=== PATIENT | male | born 1965 | race Caucasian/White ===

== ENCOUNTER 2025-08-10 12:04 | Emergency (ER) | payer OTHER, SELFPAY ==
[2025-08-10 12:13] VITALS: PULSE 49; RESP 12; O2SAT 100
[2025-08-10 12:14] VITALS: BP 120/68; PULSE 50; PULSE 52; RESP 10; TEMP 36.4; O2SAT 100; BMI 21.4
--- NOTE | 2025-08-10 12:21 | DI.RAD.S_ITS ---
PROCEDURE: XR CHEST 1V INDICATIONS: Chest Pain TECHNIQUE: One view of the chest was acquired. COMPARISON: None. FINDINGS: Surgical changes and devices: Postsurgical changes in lower cervical spine. Lungs and pleura: Ill-defined airspace opacity in right suprahilar region is seen. No pleural effusions or pneumothorax. Mediastinum: Mediastinal contours appear normal. Heart size is normal. Bones and chest wall: No suspicious bony lesions. Overlying soft tissues appear unremarkable. IMPRESSION: Finding may represent small right upper lobe infiltrate. Clinical correlation and follow-up is recommended. No pleural effusion or pneumothorax. Dictated by: Santiago Villegas M.D. on 08/10/2025 at 12:57 Approved by: Santiago Villegas M.D. on 08/10/2025 at 12:57
--- NOTE | 2025-08-10 12:22 | EKG_ITS ---
[address] [address] Test Date: 2025-08-10 Pat Name: Shabbir Fall Department: Room: Gender: Male Patient Services Rep: SHERIE : 1965 Requested By: Order Number: [id number] Reading MD: Calixto Ann Measurements Intervals [place] Rate: 52 P: 48 NM: 112 QRS: 71 QRSD: 108 T: 12 QT: 430 QTc: 399 Interpretive Statements Sinus bradycardia Electronically Signed On 08-13-2025 8:04:27 PDT by Calixto Ann
[2025-08-10 12:26] LABS: Add Manual Diff / Slide Review NO; Hematocrit 37.7 % (41-53); Hemoglobin 13.1 g/dL (13.5-17.5); Lymphocytes Absolute Auto 1800 /uL (1100-4500); Mean Corpuscular HGB Conc 34.7 % (30-36); Mean Corpuscular Hemoglobin 34.0 PG (26-34); Mean Corpuscular Volume 98.0 fL (80-100); Platelet Count 331 X10^3/uL (150-400)
[2025-08-10 12:28] LABS: INR 1.0 (0.9-1.3); Prothrombin Time 11.6 SECONDS (9.4-12.5)
[2025-08-10 12:30] VITALS: PULSE 51; RESP 10; O2SAT 100
[2025-08-10 12:31] VITALS: BP 119/73; PULSE 51; RESP 12; O2SAT 100
[2025-08-10 12:31] LABS: PTT Partial Thromboplastin Tim 25 SECONDS (25.1-36.5)
[2025-08-10 12:37] LABS: Alanine Aminotransferase 21 IU/L (<50); Albumin 4.4 g/dL (3.5-5.0); Albumin Globulin Ratio 1.6 (1.0-2.8); Alkaline Phosphatase 73 U/L (38-126); Blood Urea Nitrogen 26 mg/dL (9-20); Calcium 9.4 mg/dL (8.4-10.2); Carbon Dioxide 27 mmol/L (22-32); Chloride 102 mmol/L (98-107); Creatine Kinase 116 U/L (55-170); Estimated Glomerular Filt Rate > 60 mL/min (>60); Globulin 2.7 g/dL (1.7-4.1); Glucose 139 mg/dL (70-99); Lipase 625 U/L (23-300); Magnesium 1.9 mg/dL (1.6-2.3); Sodium 136 mmol/L (137-145); Total Protein 7.1 g/dL (6.3-8.2)
[2025-08-10 12:45] LABS: Ethanol (ETOH) < 10 mg/dL (<10)
[2025-08-10 12:47] LABS: HEMOLYSIS 124 (0-50); Potassium 4.5 mmol/L (3.4-5.1)
[2025-08-10 12:49] LABS: NT-proBNP (BNP-Adult 18+) 53 pg/mL (<125); Troponin I 0.019 ng/mL (0.01-0.034)
[2025-08-10 13:00] VITALS: BP 130/73; PULSE 80; O2SAT 95
[2025-08-10 13:30] VITALS: BP 125/73; PULSE 59; RESP 16
--- NOTE | 2025-08-10 13:35 | ED_ITS ---
HPI - General Adult General Chief complaint: Syncope Stated complaint: Near syncope Time Seen by Provider: 08/10/25 12:29 Source: EMS Mode of arrival: EMS History of Present Illness HPI narrative: Patient is a 60-year-old male history of hypertension presenting today with near syncopal episode. He is [place] from [place] of town for with your festival. He reports he did not eat breakfast they were walking around and he suddenly got very flushed lightheaded and needed to sit down. He did not pass out he did not have any kind of chest pain. Denies any alcohol use. EMS reports he was hypotensive on the scene but blood pressure quickly improved with IV fluids. He denies any fever chills cough or other symptoms. Related Data Allergies Allergy/AdvReac Type Severity Reaction Status Date / Time No Known Drug Allergies Allergy Verified 08/10/25 12:14 Exam Initial Vital Signs Initial Vital Signs: Vital Signs Pulse Rate 49 L 08/10/25 12:13 Respiratory Rate 12 08/10/25 12:13 Pulse Oximetry 100 08/10/25 12:13 GENERAL: Alert well-appearing 60-year-old and in no acute distress. HEENT: Head atraumatic,EOMI, pupils reactive, face symmetric, moist mucous membranes CARDIOVASCULAR: Regular rate and rhythm without murmurs, rubs or gallops. RESPIRATORY: Breath sounds equal bilaterally, no wheezes rales or rhonchi. ABDOMEN: Soft, nontender. Normoactive bowel sounds all 4 quadrants. No guarding or rebound. EXTREMITIES: Normal range of motion, no clubbing or edema. Neurovascularly intact NEUROLOGICAL: Alert and oriented x4.Normal gait and speech. Cranial nerves II through XII grossly intact. Manager Utilization Review strength equal bilaterally no definite SKIN: Warm, dry, no laceration, no petechiae, no rashes or lesions. Scores NIH Stroke Scale Level of Conciousness: Alert, keenly responsive Ask month/age: Answers both questions correctly. Open/close eyes, close hand: Performs both tasks correctly Best gaze horizontal: Normal Visual queen: No visual loss Facial palsy: Normal symetrical movement Left arm drift: No drift for full 10 sec Right arm drift: No drift for full 10 sec Left leg drift: No drift for full 5 sec Right leg drift: No drift for full 5 sec Limb ataxia: Absent Sensory on face/arms/legs: Normal, no sensory loss Best language: No aphasia, normal Dysarthria: Normal Extinction or inattention: No abnormality Total NIH Stroke scale score: 0 Course Orders Ordered: ED Orders 08/10/25 12:10 Complete Blood Count AUTO DIFF Stat Comprehensive Metabolic Panel Stat Lipase Stat Magnesium Stat NT-proBNP (BNP-Adult 18+) Stat PTT Partial Thromboplastin Juan F Stat Prothrombin Time INR Stat Troponin & CK Cardiac Panel Stat 08/10/25 12:21 XR chest 1V Stat EKG-12 Lead Stat 08/10/25 12:29 ETOH [Ethanol (ETOH)] Stat Discontinued Medications Aspirin (Aspirin 81 Mg Chew Tab) 324 mg PO NOW ONE Stop: 08/10/25 12:22 Last Admin: 08/10/25 14:08 Dose: Not Given Documented By: WILY Vital Signs Vital signs: Vital Signs - 8 hr 08/10/25 12:13 08/10/25 12:14 08/10/25 12:14 Temperature 97.6 F Pulse Rate 49 L 52 L Respiratory Rate 12 10 L Blood Pressure 120/68 120/68 Pulse Oximetry 100 100 Oxygen Delivery Method Room Air 08/10/25 12:14 08/10/25 12:30 08/10/25 12:31 Temperature Pulse Rate 50 L 51 L 51 L Respiratory Rate 10 L 10 L 12 Blood Pressure Pulse Oximetry 100 100 100 Oxygen Delivery Method 08/10/25 12:31 08/10/25 13:00 08/10/25 13:00 Temperature Pulse Rate 80 Respiratory Rate Blood Pressure 119/73 130/73 Pulse Oximetry 95 Oxygen Delivery Method 08/10/25 13:30 08/10/25 13:30 Temperature Pulse Rate 59 L Respiratory Rate 16 Blood Pressure 125/73 Pulse Oximetry Oxygen Delivery Method Medical Decision Making Lab Data 08/10/25 12:10 08/10/25 12:10 Labs: Lab Results 08/10/25 08/10/25 Range/Units 12:10 12:29 WBC 6.9 (4.5-11.0) X10^3/uL RBC 3.85 L (4.5-5.9) X10^6/uL Hgb 13.1 L (13.5-17.5) g/dL Hct 37.7 L (41-53) % MCV 98.0 (80-100) fL MCH 34.0 (26-34) PG MCHC 34.7 (30-36) % RDW 13.6 (11.6-14.8) % Plt Count 331 (150-400) X10^3/uL Neut % (Auto) 61.1 (50-75) % Lymph % (Auto) 26.1 (25-40) % Edwards % (Auto) 8.9 (3-14) % Eos % (Auto) 2.7 (2-4) % Baso % (Auto) 1.2 (0-2) % Neut # (Auto) 4200 (1541-4732) /uL Lymph # (Auto) 1800 (7771-1650) /uL Edwards # (Auto) 600 (0-900) /uL Eos # (Auto) 200 (0-450) /uL Baso # (Auto) 100 (0-100) /uL PT 11.6 (9.4-12.5) SECONDS INR 1.0 (0.9-1.3) APTT 25 L (25.1-36.5) SECONDS Sodium 136 L (137-145) mmol/L Potassium 4.5 (3.4-5.1) mmol/L Chloride 102 (98-107) mmol/L Carbon Dioxide 27 (22-32) mmol/L BUN 26 H (9-20) mg/dL Creatinine 0.95 (0.66-1.25) mg/dL Estimated GFR > 60 (>60) mL/min BUN/Creatinine Ratio 27.4 H (6-22) Glucose 139 H (70-99) mg/dL Calcium 9.4 (8.4-10.2) mg/dL Magnesium 1.9 (1.6-2.3) mg/dL Total Bilirubin 0.9 (0.2-1.3) mg/dL AST 43 (17-59) IU/L ALT 21 (<50) IU/L Alkaline Phosphatase 73 (38-126) U/L Total Creatine Kinase 116 (55-170) U/L Troponin I 0.019 (0.01-0.034) ng/mL NT-Pro-B Natriuret Pep 53 (<125) pg/mL Total Protein 7.1 (6.3-8.2) g/dL Albumin 4.4 (3.5-5.0) g/dL Globulin 2.7 (1.7-4.1) g/dL Albumin/Globulin Ratio 1.6 (1.0-2.8) Lipase 625 H (23-300) U/L Ethyl Alcohol < 10 (<10) mg/dL Imaging Data Chest x-ray: Radiologist's Impression: PROCEDURE: XR CHEST 1V INDICATIONS: Chest Pain TECHNIQUE: One view of the chest was acquired. COMPARISON: None. FINDINGS: Surgical changes and devices: Postsurgical changes in lower cervical spine. Lungs and pleura: Ill-defined airspace opacity in right suprahilar region is seen. No pleural effusions or pneumothorax. Mediastinum: Mediastinal contours appear normal. Heart size is normal. Bones and chest wall: No suspicious bony lesions. Overlying soft tissues appear unremarkable. IMPRESSION: Finding may represent small right upper lobe infiltrate. Clinical correlation and follow-up is recommended. No pleural effusion or pneumothorax. Dictated by: Santiago Villegas M.D. on 08/10/2025 at 12:57 ECG Data Attestation: I personally reviewed and interpreted this ECG as follows: Prior ECG tracings: not available for review Interpretation: Normal sinus rhythm rate 52 NE interval 112 QRS [address] changes no T- wave inversions no priors to compare MDM Narrative Medical decision making narrative: MDM CC: Near syncope Complicating co-morbidities: Hypertension Data collected from: Patient EMS Medical records reviewed: None Differential considered: Dehydration vasovagal cardiac neurogenic syncope, anemia, bradycardia Exam documented above, pertinent findings include: Alert well-appearing 60-year-old male NIH 0 Lab Test results independently reviewed as above. Pertinent findings: CBC leukocytosis no anemia Electrolytes within normal limits No DIVINA Glucose 139 Bilirubin liver enzymes within normal limits, lipase minimally elevated at 625 Alcohol less than 10 Independently reviewed EKG as above Sinus rhythm no ischemia Imaging studies independently reviewed: Chest x-ray questionable right upper lobe infiltrate but this does not correlate clinic Consultations: None Treatments: IV fluids, sandwich Re-evaluations: Patient eating a sandwich vitals remain stable heart rate does improve into the 60s. He takes lisinopril only for blood pressure not on any AV javy blockers. He ambulated in the ED without any issues Discussion: Patient 60-year-old male presenting today with a near syncopal episode. He reports he did not eat breakfast this morning he normally does. He is found to be hypotensive however look pressure quickly improved with IV fluids. Labs are overall reassuring. He is eating a sandwich overall feeling better. At this time he ambulated in the emergency department without any sort of difficulty. No need for any further workup at this time. Discharge Plan Departure Patient Disposition: Home Clinical Impression: Vasovagal syncope Instructions: DI for Syncope in Adults (Fainting) Activity Restrictions/Additional Instructions: *You have been diagnosed with fainting *What to do: At this time make sure you are drinking fluids something was sugar and electrolytes make sure you are eating regularly *Continue to take medications as directed *Follow up with your primary care provider in 2-3 days or call [phone] *Return to ER if you should have increasing dizziness passing out shortness of breath [or] any new, worsening or concerning symptoms Stand Alone Forms: Patient Portal/API
== END 2025-08-10 14:12 | disposition home or self-care (01) ==
PROVIDERS: Emergency Provider Emergency Medicine
DX: R55 Syncope and collapse (principal); R07.9 Chest pain, unspecified
CPT/HCPCS: 71045; 80053; 80320; 82550; 83690; 83735; 83880; 84484; 85025; 85610; 85730; 93005; 99283; 99284